=== PATIENT | male | born 1995 | race African-American/Black ===

== ENCOUNTER 2022-08-13 20:04 | Observation (INO) ==
[2022-08-13 21:12] LABS: Basophils # 0.1 10*3/uL (0.0-0.2); Basophils % 0.3 % (0.0-0.8); Eosinophils % 0.3 % (0.00-10.9); Hematocrit 50.5 VOL% (42.0-52.0); Hemoglobin 17.4 GM/DL (14.0-18.0); Immature Granulocytes % 0.3 %; Immature Granulocytes Absolute 0.04 #; Lymphocytes # 2.7 10*3/uL (1.4-4.0); Lymphocytes % 17.7 % (21.2-54.2); Mean Corpuscular HGB Conc 34.5 GM/DL (32-36); Mean Corpuscular Volume 84.9 FL (87-102); Mean Platelet Volume 10.5 FL (9.6-12.0); Monocytes # 1.3 10*3/uL (0.11-0.8); Monocytes % 8.8 % (1.7-12.7); Neutrophils % 72.6 % (38.7-73.9); Platelet Count 270 T/CUMM (130-400); Red Blood Count 5.95 MC/CUMM (3.8-5.5); White Blood Count 15.2 T/CUMM (4-12)
[2022-08-13] MEDS ORDERED: ONDANSETRON 4 MG/2 ML VIAL IV ONE (21:21)
[2022-08-13] MEDS ORDERED: LACTATED RINGERS 1,000 ML IV ONE (21:23)
[2022-08-13 21:24] LABS: Alanine Aminotransferase 38 U/L (16-61); Albumin > 5.0 G/DL (3.4-5.0); Alkaline Phosphatase 90 U/L (45-117); Aspartate Amino Transferase 38 U/L (0-37); Blood Urea Nitrogen 31 MG/DL (7-18); Calcium 9.4 MG/DL (8.5-10.1); Carbon Dioxide 24 MMOL/L (21-32); Chloride 97 MMOL/L (98-107); Glucose 105 MG/DL (74-106); Osmolality,Calculated 272.4 MOS/KG (273-304); Potassium 3.1 MMOL/L (3.5-5.1); Sodium 133 MMOL/L (136-145); Total Protein 9.4 G/DL (6.4-8.2)
[2022-08-13 21:47] LABS: Glucose,Urine (UA) Negative (Negative); Ketones,Urine 15 mg/dL (Negative); Nitrite,Urine Negative (Negative); Protein,Urine 30 mg/dL (Negative); Urine Appearance Clear (Clear); Urine Color Yellow (Yellow); Urine Specific Gravity > 1.030 (1.001-1.035)
[2022-08-13 21:48] LABS: Bilirubin,Urine Moderate mg/dL (Negative); Blood, Urine Small mg/dL (Negative); Urine Urobilinogen 0.2 eU/dL (<2.0)
[2022-08-13 21:50] LABS: Bacteria,Urine Occasional /HPF (Few); Hyaline Casts,Urine 39 /LPF (0-3); Mucus,Urine Occasional /LPF (Occasional); RBC,Urine 4 /HPF (0-4)
[2022-08-13] MEDS ORDERED: PROMETHAZINE 25 MG/1 ML VIAL ONE (22:38)
[2022-08-13] MEDS ORDERED: PROMETHAZINE INJ 12.5 MG in SODIUM CHLORIDE 0.9% 50 ML IV STA (22:40)
[2022-08-13] MEDS ORDERED: POTASSIUM CHLORIDE 20 MEQ TABLET PO STA (23:11)
[2022-08-13 23:36] LABS: Hepatitis B Core IgM Quant 0.07 Index; Hepatitis B Surface Ag Quant < 0.10 Index; Hepatitis B Surface Ag Result Non-Reactive (NonReactive); Hepatitis C Virus Ab Quant < 0.02 Index; Hepatitis C Virus Ab Result Non-Reactive (NonReactive)
[2022-08-14] MEDS ORDERED: guaiFENesin/DM ER 600-30 MG TABLET PO PRN (00:45)
[2022-08-14] MEDS ORDERED: diphenhydrAMINE CAP 25 MG CAPSULE PO PRN (00:45)
[2022-08-14] MEDS ORDERED: NICOTINE 21 MG/24 HR PATCH TRANSDERM PRN (00:45)
[2022-08-14] MEDS ORDERED: ONDANSETRON 4 MG/2 ML VIAL IV PRN (00:45)
[2022-08-14] MEDS ORDERED: MORPHINE 2 MG/1 ML SYRINGE IV PRN (00:45)
[2022-08-14] MEDS ORDERED: PROMETHAZINE 25 MG/1 ML VIAL IM PRN (00:45)
[2022-08-14] MEDS ORDERED: hydrALAZINE 20 MG/1 ML VIAL IV PRN (00:45)
[2022-08-14] MEDS ORDERED: ACETAMINOPHEN 325 MG TABLET PO PRN (00:45)
[2022-08-14] MEDS ORDERED: ZALEPLON 5 MG CAPSULE PO PRN (00:45)
[2022-08-14] MEDS: SODIUM CHLORIDE 0.9% 1,000 ML IV SCH ×3 (03:15→23:15)
[2022-08-14] MEDS: cefTRIAXone 1,000 MG in SODIUM CHLORIDE 0.9% 100 ML IV SCH (06:25)
[2022-08-14 07:06] LABS: Basophils % 0.2 % (0.0-0.8); Eosinophils % 0.1 % (0.00-10.9); Hematocrit 55.2 VOL% (42.0-52.0); Hemoglobin 18.9 GM/DL (14.0-18.0); Immature Granulocytes % 0.4 %; Immature Granulocytes Absolute 0.06 #; Lymphocytes # 2.1 10*3/uL (1.4-4.0); Lymphocytes % 14.2 % (21.2-54.2); Mean Corpuscular HGB Conc 34.2 GM/DL (32-36); Mean Corpuscular Volume 85.1 FL (87-102); Mean Platelet Volume 10.6 FL (9.6-12.0); Monocytes # 1.4 10*3/uL (0.11-0.8); Monocytes % 9.2 % (1.7-12.7); Neutrophils % 75.9 % (38.7-73.9); Platelet Count 262 T/CUMM (130-400); Red Blood Count 6.49 MC/CUMM (3.8-5.5); Red Cell Distribution Width 14.9 % (9.3-17.3); White Blood Count 14.6 T/CUMM (4-12)
[2022-08-14 07:24] LABS: Calcium 10.3 MG/DL (8.5-10.1); Osmolality,Calculated 270.7 MOS/KG (273-304); Potassium 3.4 MMOL/L (3.5-5.1)
[2022-08-14] MEDS: MAGNESIUM HYDROXIDE SUSP 30 ML UDCUP PO SCH ×2 (09:08→20:40)
[2022-08-14] MEDS: POTASSIUM CHLORIDE 20 MEQ TABLET PO PRN ×3 (09:08→14:18)
[2022-08-14] MEDS: metroNIDAZOLE INJ 500 MG/100 ML PREMIX IV SCH ×3 (09:08→23:08)
[2022-08-14] MEDS: HEPARIN 5,000 UNIT/1 ML VIAL SUBCUT SCH ×2 (09:08→20:39)
[2022-08-14] MEDS: PANTOPRAZOLE 40 MG TABLET PO SCH (09:14)
[2022-08-14 12:32] LABS: Basophils % 0.2 % (0.0-0.8); Eosinophils % 0.1 % (0.00-10.9); Hematocrit 51.1 VOL% (42.0-52.0); Immature Granulocytes % 0.5 %; Immature Granulocytes Absolute 0.06 #; Lymphocytes # 1.9 10*3/uL (1.4-4.0); Lymphocytes % 14.7 % (21.2-54.2); Mean Corpuscular HGB Conc 35.2 GM/DL (32-36); Mean Corpuscular Volume 83.1 FL (87-102); Mean Platelet Volume 10.4 FL (9.6-12.0); Monocytes # 1.1 10*3/uL (0.11-0.8); Monocytes % 8.1 % (1.7-12.7); Neutrophils % 76.4 % (38.7-73.9); Platelet Count 268 T/CUMM (130-400); Red Blood Count 6.15 MC/CUMM (3.8-5.5); Red Cell Distribution Width 13.9 % (9.3-17.3)
[2022-08-14 12:48] LABS: Calcium 10.2 MG/DL (8.5-10.1); Osmolality,Calculated 272.5 MOS/KG (273-304)
[2022-08-14 16:26] LABS: Arterial Base Excess iSTAT -2 MMOL/L (-2.5-2.5); Arterial Bicarbonate iSTAT 21.9 MMOL/L (20-26); Arterial O2 Saturation iSTAT 98 % (95-100); Arterial PCO2 iSTAT 34 MM HG (35-48); Arterial PO2 iSTAT 102 MM HG (80-95); Arterial Total CO2 iSTAT 23 MMO/L (23-27); Arterial pH iSTAT 7.415 (7.35-7.45)
[2022-08-15] MEDS: cefTRIAXone 1,000 MG in SODIUM CHLORIDE 0.9% 100 ML IV SCH (05:41)
[2022-08-15 05:47] LABS: Basophils % 0.2 % (0.0-0.8); Eosinophils % 0.3 % (0.00-10.9); Hematocrit 48.6 VOL% (42.0-52.0); Immature Granulocytes % 0.4 %; Immature Granulocytes Absolute 0.05 #; Lymphocytes # 2.2 10*3/uL (1.4-4.0); Lymphocytes % 16.9 % (21.2-54.2); Mean Corpuscular Volume 84.4 FL (87-102); Mean Platelet Volume 10.5 FL (9.6-12.0); Monocytes # 1.4 10*3/uL (0.11-0.8); Monocytes % 10.8 % (1.7-12.7); Neutrophils % 71.4 % (38.7-73.9); Platelet Count 243 T/CUMM (130-400); Red Blood Count 5.76 MC/CUMM (3.8-5.5); Red Cell Distribution Width 13.6 % (9.3-17.3); White Blood Count 13.1 T/CUMM (4-12)
[2022-08-15 06:09] LABS: Calcium 9.7 MG/DL (8.5-10.1); Osmolality,Calculated 268.5 MOS/KG (273-304); Potassium 3.4 MMOL/L (3.5-5.1)
[2022-08-15] MEDS: POTASSIUM CHLORIDE 20 MEQ TABLET PO PRN (06:28)
[2022-08-15] MEDS: PANTOPRAZOLE 40 MG TABLET PO SCH (08:20)
[2022-08-15] MEDS: HEPARIN 5,000 UNIT/1 ML VIAL SUBCUT SCH (08:20)
[2022-08-15] MEDS: MAGNESIUM HYDROXIDE SUSP 30 ML UDCUP PO SCH (08:20)
[2022-08-15] MEDS: metroNIDAZOLE INJ 500 MG/100 ML PREMIX IV SCH (08:20)
[2022-08-15] MEDS: SODIUM CHLORIDE 0.9% 1,000 ML IV SCH (08:28)
[2022-08-15 10:59] VITALS: BP 145/89
== END 2022-08-15 10:54 | disposition home or self-care (01) ==
LOC: N.ED 20:04 → SUATTDRO 08-14 00:45 → INTOOBSV 08-14 00:45 → N.3E 08-14 00:45
PROVIDERS: ADMIT Emergency Medicine; ATTEND Internal Medicine